=== PATIENT | male | born 1975 | race Caucasian/White ===

== ENCOUNTER → 2022-04-02 | Outpatient (CLI) | payer OTHER | LOC: US 12:51 | PROVIDERS: ATTEND Family Medicine | DX: R22.2 Localized swelling, mass and lump, trunk (principal) | CPT/HCPCS: 76882 ==

== ENCOUNTER → 2024-05-29 | Outpatient (REF) | payer OTHER | LOC: US 08:32 | PROVIDERS: ATTEND Family Medicine | DX: R74.8 Abnormal levels of other serum enzymes (principal) | CPT/HCPCS: 76705 ==

== ENCOUNTER → 2024-05-30 | Day surgery (SDC) | payer OTHER ==
[~2024-05-30] MED LIST: DEXMEDETOMIDINE HCL 200 MCG/2 ML VIAL ONE; FENTANYL CITRATE/PF 100MCG/2 ML INJ ONE; LIDOCAINE HCL 2% LOCAL INJ 5 ML SDV VIAL INJ ONE; METOCLOPRAMIDE HCL 10 MG/2ML VIAL ONE; MIDAZOLAM HCL 2 MG/2 ML VIAL ONE; PROPOFOL IV EMULSION 10 MG/ML 50 ML VIAL IV ONE
[2024-05-30] MEDS: LACTATED RINGER'S 1,000 ML ONE (13:01)
[2024-05-30 14:56] VITALS: TEMP 97.7
[2024-05-30 15:25] VITALS: BP 116/84; PULSE 65; RESP 16; O2SAT 99
== END | disposition home or self-care (01) ==
LOC: OR 12:52
PROVIDERS: ATTEND Internal Medicine Gastroenterology
DX: K22.2 Esophageal obstruction (principal); D12.2 Benign neoplasm of ascending colon; D12.4 Benign neoplasm of descending colon; K29.70 Gastritis, unspecified, without bleeding; K22.10 Ulcer of esophagus without bleeding; K31.89 Other diseases of stomach and duodenum; K44.9 Diaphragmatic hernia without obstruction or gangrene; K21.9 Gastro-esophageal reflux disease without esophagitis; K62.5 Hemorrhage of anus and rectum; K57.30 Diverticulosis of large intestine without perforation or abscess without bleeding; K64.8 Other hemorrhoids; R03.0 Elevated blood-pressure reading, without diagnosis of hypertension; R74.8 Abnormal levels of other serum enzymes; Z68.30 Body mass index [BMI] 30.0-30.9, adult; Z01.810 Encounter for preprocedural cardiovascular examination
CPT/HCPCS: 43239; 43450; 45385; 93005; J2003; J2250; J2470; J2704; J2765; J3010; J7121; 45380